=== PATIENT | male | born 1950 | race Two or more races ===

== ENCOUNTER 2022-04-17 03:41 | Emergency (ER) | payer OTHER ==
[~2022-04-17] VITALS: Ht 172.7 cm; Wt 112.5 kg
[2022-04-17] MEDS ORDERED: VENLAFAXINE HC150 M1 PO (04:16)
[2022-04-17] MEDS ORDERED: HORIZANT600 MG PO (04:16)
[2022-04-17] MEDS ORDERED: CARDURA XL4 MG PO (04:16)
[2022-04-17] MEDS ORDERED: HYDRALAZINE HCL25 MG PO (04:16)
[2022-04-17] MEDS ORDERED: ROPINIROLE HCL4 M1 PO (04:16)
[2022-04-17] MEDS ORDERED: ZYLOPRIM100 M1 PO (04:17)
[2022-04-17] MEDS ORDERED: ATORVASTATIN CA40 MG PO (04:17)
[2022-04-17] MEDS ORDERED: FINASTERIDE5 MG PO (04:17)
[2022-04-17] MEDS ORDERED: ZESTRIL20 MG PO (04:17)
[2022-04-17] MEDS ORDERED: DICLOFENAC SODI75 MG PO ×3 (05:32→13:55)
[2022-04-17] MEDS ORDERED: CYCLOBENZAPRINE10 MG PO (13:55)
== END 2022-04-17 05:44 | disposition home or self-care (01) ==
LOC: ER 03:41
DX: M50.31 Other cervical disc degeneration, high cervical region (principal); I10 Essential (primary) hypertension; M10.9 Gout, unspecified

== ENCOUNTER 2022-04-17 09:47 | Emergency (ER) | payer OTHER ==
[~2022-04-17] VITALS: Ht 172.7 cm; Wt 113.4 kg
[~2022-04-17 09:47] MED LIST: ATORVASTATIN CA40 MG PO; CARDURA XL4 MG PO; DICLOFENAC SODI75 MG PO; FINASTERIDE5 MG PO; HORIZANT600 MG PO; HYDRALAZINE HCL25 MG PO; ROPINIROLE HCL4 M1 PO; VENLAFAXINE HC150 M1 PO; ZESTRIL20 MG PO; ZYLOPRIM100 M1 PO
[2022-04-17] MEDS ORDERED: DICLOFENAC SODI75 MG PO (13:55)
[2022-04-17] MEDS ORDERED: CYCLOBENZAPRINE10 MG PO (13:55)
== END 2022-04-17 14:18 | disposition home or self-care (01) ==
LOC: ER 09:47
DX: M62.838 Other muscle spasm (principal)

== ENCOUNTER 2022-04-23 10:40 | Inpatient (IN) | payer OTHER ==
[~2022-04-23] VITALS: Ht 172.7 cm; Wt 113.4 kg
[~2022-04-23 10:40] MED LIST changes: +CYCLOBENZAPRINE10 MG PO
--- NOTE | 2022-04-23 10:46 | NUR ---
SE RECIBE PTE ALERTA Y ORIENTADO X3 JUNTO A BARRETT ESPOSA EN AMBULANCIA, CON CANULA NASAL .3L EL CUAL REFIERE DIFICULTAD RESPIRATORIA, PRESENTA EDEMA EN AMBOS PIES, DOLOR DE ESPALDA.
--- NOTE | 2022-04-23 15:01 | NUR ---
SE RECIBE PTE MASCULINO DE 71 ANOS ALERTA. PTE SE OBSERBA RECIBIENDO O2 POR C/N A 3 LT/MIN. PTE SE OBSERBA EN DESCANSO ABSOLUTO EN CAMA. SE OBSERBA [place] A GRAVEDAD. PTE PEND A RESULTADOS DE LAB PARA RE EVALUACION MEDICA.
== END 2022-05-07 12:05 | disposition home or self-care (01) | DRG 871 ==
LOC: ER 10:40 → ICU 18:06 → ICU-2 18:06 → MEDJ 18:06 → ICU 21:28 → MEDJ 04-29 19:08
PROVIDERS: ADMIT Internal Medicine; ATTEND Internal Medicine
PROC: B24BZZZ Ultrasonography of Heart with Aorta (ICD-10-PCS; 2022-04-23)
PROC: CW1D1ZZ Planar Nuclear Medicine Imaging of Lower Extremity using Technetium 99m (Tc-99m) (ICD-10-PCS; 2022-04-27)
PROC: 4A12X4Z Monitoring of Cardiac Electrical Activity, External Approach (ICD-10-PCS; principal; 2022-04-29)
DX: A40.1 Sepsis due to streptococcus, group B (principal); I50.33 Acute on chronic diastolic (congestive) heart failure; J96.01 Acute respiratory failure with hypoxia; R78.81 Bacteremia; T84.54XA Infection and inflammatory reaction due to internal left knee prosthesis, initial encounter; I48.20 Chronic atrial fibrillation, unspecified; I47.1 Supraventricular tachycardia; I11.0 Hypertensive heart disease with heart failure; G47.33 Obstructive sleep apnea (adult) (pediatric); E78.5 Hyperlipidemia, unspecified; M10.9 Gout, unspecified; Z20.822 Contact with and (suspected) exposure to COVID-19; E66.01 Morbid (severe) obesity due to excess calories; Z68.38 Body mass index [BMI] 38.0-38.9, adult